=== PATIENT | male | born 1960 | race Caucasian/White ===

== ENCOUNTER 2017-09-20 14:36 | Emergency (ER) | payer MEDICARE, MEDICAID ==
[~2017-09-20] VITALS: Ht 175.3 cm; Wt 67.2 kg
[2017-09-20 15:11] LABS: BASOPHILS # (AUTO) 0.06 x10^3/uL (0-0.1); BASOPHILS % (AUTO) 1 % (0-1); EOSINOPHILS # (AUTO) 0.22 x10^3/uL (0-0.4); EOSINOPHILS % (AUTO) 3 % (1-7); LYMPHOCYTES # (AUTO) 1.67 x10^3/uL (1-3.4); LYMPHOCYTES % (AUTO) 21 % (22-44); MD NO; MEAN CORPUSCULAR HEMOGLOBIN 30.7 pg (27.5-34.5); MEAN CORPUSCULAR HGB CONC 33.4 g/dL (33.2-36.2); MEAN PLATELET VOLUME 7.7 fL (7.4-10.4); MONOCYTES # (AUTO) 0.54 x10^3/uL (0.2-0.8); MONOCYTES % (AUTO) 7 % (2-9); NEUTROPHILS # (AUTO) 5.42 x10^3/uL (1.8-6.8); NEUTROPHILS % (AUTO) 69 % (42-75); PLATELET COUNT 242 x10^3/uL (130-400); RED BLOOD COUNT 4.26 x10^6/uL (4.38-5.82); RED CELL DISTRIBUTION WIDTH 13.3 % (9.4-14.8)
[2017-09-20 15:21] LABS: ALANINE AMINOTRANSFERASE 23 U/L (12-78); ALBUMIN 3.5 g/dL (3.4-5.0); ANION GAP 8 mmol/L (5-15); CALCIUM 8.4 mg/dL (8.5-10.1); CHLORIDE 113 mmol/L (98-107); CREATININE 3.74 mg/dL (0.7-1.3)
[2017-09-20 15:23] LABS: ALKALINE PHOSPHATASE 64 U/L (45-117); BILIRUBIN,TOTAL 0.4 mg/dL (0.2-1.0); TOTAL PROTEIN 6.6 g/dL (6.4-8.2)
[2017-09-20 15:42] LABS: TROPONIN I < 0.015 ng/mL (0.000-0.045)
[2017-09-20 16:11] LABS: MICROSCOPIC INDICATED
[2017-09-20 16:19] LABS: CULTURE INDICATED? YES
[2017-09-20 17:57] VITALS: BP 152/105
== END 2017-09-20 17:59 | disposition home or self-care (01) ==
LOC: ED 17:18
DX: I13.0 Hypertensive heart and chronic kidney disease with heart failure and stage 1 through stage 4 chronic kidney disease, or unspecified chronic kidney disease (principal); N18.9 Chronic kidney disease, unspecified; I50.9 Heart failure, unspecified; Z99.2 Dependence on renal dialysis; F17.200 Nicotine dependence, unspecified, uncomplicated; R82.99 Other abnormal findings in urine
CPT/HCPCS: 36415; 80053; 81001; 83880; 84484; 85025; 87086; 99284

== ENCOUNTER 2017-11-09 16:48 | Emergency (ER) | payer MEDICAID, MEDICARE ==
[~2017-11-09] VITALS: Ht 177.8 cm; Wt 65.1 kg
[2017-11-09 20:34] LABS: ANION GAP 5 mmol/L (5-15); CALCIUM 7.8 mg/dL (8.5-10.1); CHLORIDE 116 mmol/L (98-107); CREATININE 2.96 mg/dL (0.7-1.3)
[2017-11-09 20:55] VITALS: BP 167/106
== END 2017-11-09 21:11 | disposition home or self-care (01) ==
LOC: ED 21:05
DX: T82.868A Thrombosis due to vascular prosthetic devices, implants and grafts, initial encounter (principal); N18.3 Chronic kidney disease, stage 3 (moderate); F17.200 Nicotine dependence, unspecified, uncomplicated; I13.0 Hypertensive heart and chronic kidney disease with heart failure and stage 1 through stage 4 chronic kidney disease, or unspecified chronic kidney disease; I50.9 Heart failure, unspecified
CPT/HCPCS: 36415; 80048; 99285

== ENCOUNTER 2018-02-28 16:12 | Inpatient (IN) | payer MEDICARE ==
[~2018-02-28] VITALS: Ht 175.3 cm; Wt 74.3 kg
[2018-02-28] MEDS ORDERED: ONDANSETRON ODT 4 MG PO ONE ×2 (17:00→18:30)
[2018-02-28] MEDS ORDERED: ONDA4TAB13 SL (17:05)
[2018-02-28] MEDS ORDERED: TORS10TA4 PO (17:05)
[2018-02-28] MEDS ORDERED: RANI150T4 PO (17:05)
[2018-02-28] MEDS ORDERED: AMLO10TA6 PO (17:05)
[2018-02-28] MEDS ORDERED: CARV25TA12 PO (17:05)
[2018-02-28] MEDS ORDERED: ONDANSETRON ODT 4 MG ONE (17:13)
[2018-02-28 17:18] LABS: BASOPHILS # (AUTO) 0.08 x10^3/uL (0-0.1); BASOPHILS % (AUTO) 1 % (0-1); EOSINOPHILS # (AUTO) 0.23 x10^3/uL (0-0.4); EOSINOPHILS % (AUTO) 2 % (1-7); LYMPHOCYTES # (AUTO) 1.33 x10^3/uL (1-3.4); LYMPHOCYTES % (AUTO) 11 % (22-44); MD NO; MEAN CORPUSCULAR HEMOGLOBIN 32.3 pg (27.5-34.5); MEAN CORPUSCULAR HGB CONC 34.8 g/dL (33.2-36.2); MEAN CORPUSCULAR VOLUME 92.6 fL (81-97); MEAN PLATELET VOLUME 7.2 fL (7.4-10.4); MONOCYTES # (AUTO) 0.49 x10^3/uL (0.2-0.8); MONOCYTES % (AUTO) 4 % (2-9); NEUTROPHILS # (AUTO) 9.51 x10^3/uL (1.8-6.8); NEUTROPHILS % (AUTO) 82 % (42-75); PLATELET COUNT 187 x10^3/uL (130-400); RED BLOOD COUNT 3.09 x10^6/uL (4.38-5.82); RED CELL DISTRIBUTION WIDTH 14.4 % (9.4-14.8)
[2018-02-28 17:24] LABS: ALANINE AMINOTRANSFERASE 29 U/L (12-78); ALBUMIN 2.4 g/dL (3.4-5.0); ANION GAP 10 mmol/L (5-15); CALCIUM 7.4 mg/dL (8.5-10.1); CHLORIDE 119 mmol/L (98-107); CREATININE 5.47 mg/dL (0.7-1.3)
[2018-02-28 17:28] LABS: ALKALINE PHOSPHATASE 71 U/L (45-117); BILIRUBIN,TOTAL 0.3 mg/dL (0.2-1.0); TOTAL PROTEIN 5.5 g/dL (6.4-8.2)
[2018-02-28 17:29] LABS: TROPONIN I < 0.015 ng/mL (0.000-0.045)
[2018-02-28] MEDS ORDERED: SODIUM CHLORIDE 0.9% 1,000 ML IV ONE ×2 (18:01→18:22)
[2018-02-28] MEDS ORDERED: LORazepam 2 MG/ML, 1ML ONE (18:23)
[2018-02-28] MEDS ORDERED: ONDANSETRON 2MG/ML, 2ML ONE (18:23)
[2018-02-28] MEDS ORDERED: SODIUM CHLORIDE 0.9% 1,000ML IVBOLUS ONE (18:30)
[2018-02-28] MEDS ORDERED: SODIUM CHLORIDE FLUSH 10ML SYR IVF PRN (18:30)
[2018-02-28] MEDS ORDERED: LORazepam 2 MG/ML, 1ML IVPush ONE (18:30)
[2018-02-28] MEDS ORDERED: SODIUM CHLORIDE 0.9%, 500ML IVBOLUS ONE (19:00)
[2018-02-28] MEDS ORDERED: SODIUM BICARBONATE 8.4% 75 MEQ in DEXTROSE 5% 1,000 ML IV ONE (19:00)
[2018-02-28] MEDS ORDERED: ONDANSETRON ODT 4 MG PO PRN ×2 (19:00)
[2018-02-28] MEDS ORDERED: hydrALAzine 20 MG/ML, 1ML IVPush PRN (19:00)
[2018-02-28] MEDS ORDERED: ONDANSETRON 2MG/ML, 2ML IVPush PRN (19:00)
[2018-02-28] MEDS ORDERED: ACETAMINOPHEN 325 MG TABLET PO PRN (19:00)
[2018-02-28] MEDS: CARVEDILOL 25 MG TABLET PO SCH (21:18)
[2018-02-28] MEDS: HEPARIN 5,000 UNITS/ML, 1ML SQ SCH (21:18)
[2018-02-28] MEDS: SODIUM BICARBONATE 8.4% 100 MEQ in DEXTROSE 5% 1,000 ML IV SCH (21:20)
[2018-02-28 21:25] VITALS: BP 180/98
[2018-02-28] MEDS: TEMAZEPAM 15 MG CAPSULE PO PRN (22:46)
[2018-02-28 23:31] VITALS: BP 166/88
[2018-03-01 01:25] LABS: MICROSCOPIC INDICATED
[2018-03-01 01:36] VITALS: BP 153/91
[2018-03-01] MEDS ORDERED: CALCIUM CARBONATE 500 MG TAB.CHEW PO PRN (04:30)
[2018-03-01 04:50] LABS: CALCIUM 7.6 mg/dL (8.5-10.1)
[2018-03-01 04:53] LABS: ANION GAP 11 mmol/L (5-15); CALCIUM 7.4 mg/dL (8.5-10.1); CHLORIDE 115 mmol/L (98-107); CREATININE 5.55 mg/dL (0.7-1.3)
[2018-03-01] MEDS: SODIUM BICARBONATE 8.4% 100 MEQ in DEXTROSE 5% 1,000 ML IV SCH ×3 (04:56→21:56)
[2018-03-01 05:03] LABS: BASOPHILS # (AUTO) 0.02 x10^3/uL (0-0.1); BASOPHILS % (AUTO) 0 % (0-1); EOSINOPHILS # (AUTO) 0.01 x10^3/uL (0-0.4); EOSINOPHILS % (AUTO) 0 % (1-7); LYMPHOCYTES # (AUTO) 1.39 x10^3/uL (1-3.4); LYMPHOCYTES % (AUTO) 14 % (22-44); MD NO; MEAN CORPUSCULAR HEMOGLOBIN 31.6 pg (27.5-34.5); MEAN CORPUSCULAR HGB CONC 34.3 g/dL (33.2-36.2); MEAN CORPUSCULAR VOLUME 92.2 fL (81-97); MEAN PLATELET VOLUME 7.3 fL (7.4-10.4); MONOCYTES # (AUTO) 0.61 x10^3/uL (0.2-0.8); MONOCYTES % (AUTO) 6 % (2-9); NEUTROPHILS # (AUTO) 7.71 x10^3/uL (1.8-6.8); NEUTROPHILS % (AUTO) 79 % (42-75); PLATELET COUNT 164 x10^3/uL (130-400); RED BLOOD COUNT 2.63 x10^6/uL (4.38-5.82); RED CELL DISTRIBUTION WIDTH 14.4 % (9.4-14.8)
[2018-03-01 07:56] VITALS: BP 151/90
[2018-03-01] MEDS: AMLODIPINE 10 MG TAB PO SCH (09:02)
[2018-03-01] MEDS: FAMOTIDINE 20 MG TABLET PO SCH (09:02)
[2018-03-01] MEDS: HEPARIN 5,000 UNITS/ML, 1ML SQ SCH ×2 (09:03→21:17)
[2018-03-01] MEDS: CARVEDILOL 25 MG TABLET PO SCH ×2 (09:03→21:16)
[2018-03-01 13:40] LABS: INTERNATIONAL NORMALIZED RATIO 1.04 (0.93-1.1); PROTHROMBIN TIME 10.7 Seconds (9.6-11.5)
[2018-03-01 14:00] VITALS: BP 152/84
[2018-03-01 19:53] VITALS: BP 150/87
[2018-03-01] MEDS: TEMAZEPAM 15 MG CAPSULE PO PRN (21:16)
[2018-03-02 02:00] VITALS: BP 138/80
[2018-03-02] MEDS: SODIUM BICARBONATE 8.4% 100 MEQ in DEXTROSE 5% 1,000 ML IV SCH (05:29)
[2018-03-02 05:48] LABS: CHLORIDE 108 mmol/L (98-107)
[2018-03-02 05:54] LABS: ALANINE AMINOTRANSFERASE 19 U/L (12-78); ALBUMIN 1.6 g/dL (3.4-5.0); ALKALINE PHOSPHATASE 47 U/L (45-117); ANION GAP 8 mmol/L (5-15); BILIRUBIN,TOTAL 0.2 mg/dL (0.2-1.0); CALCIUM 7.2 mg/dL (8.5-10.1); CREATININE 5.64 mg/dL (0.7-1.3); TOTAL PROTEIN 4.1 g/dL (6.4-8.2)
[2018-03-02 06:30] LABS: MEAN CORPUSCULAR HEMOGLOBIN 32.1 pg (27.5-34.5); MEAN CORPUSCULAR HGB CONC 34.3 g/dL (33.2-36.2); MEAN CORPUSCULAR VOLUME 93.7 fL (81-97); MEAN PLATELET VOLUME 7.5 fL (7.4-10.4); PLATELET COUNT 146 x10^3/uL (130-400); RED BLOOD COUNT 2.31 x10^6/uL (4.38-5.82); RED CELL DISTRIBUTION WIDTH 14.5 % (9.4-14.8)
[2018-03-02 07:00] LABS: BASOPHILS # (AUTO) 0.06 x10^3/uL (0-0.1); BASOPHILS % (AUTO) 1 % (0-1); EOSINOPHILS # (AUTO) 0.39 x10^3/uL (0-0.4); EOSINOPHILS % (AUTO) 5 % (1-7); LYMPHOCYTES # (AUTO) 1.86 x10^3/uL (1-3.4); LYMPHOCYTES % (AUTO) 23 % (22-44); MD SCAN; MONOCYTES # (AUTO) 0.75 x10^3/uL (0.2-0.8); MONOCYTES % (AUTO) 9 % (2-9); NEUTROPHILS # (AUTO) 4.96 x10^3/uL (1.8-6.8); NEUTROPHILS % (AUTO) 62 % (42-75)
[2018-03-02 07:34] VITALS: BP 104/59
[2018-03-02 08:45] VITALS: BP 145/87
[2018-03-02] MEDS: FAMOTIDINE 20 MG TABLET PO SCH (08:47)
[2018-03-02] MEDS: CARVEDILOL 25 MG TABLET PO SCH ×2 (08:47→20:42)
[2018-03-02] MEDS: AMLODIPINE 10 MG TAB PO SCH (08:47)
[2018-03-02] MEDS: HEPARIN 5,000 UNITS/ML, 1ML SQ SCH ×2 (08:48→20:42)
[2018-03-02] MEDS: ERGOCALCIFEROL 50,000 UNIT CAPSULE PO SCH (10:21)
[2018-03-02] MEDS: CALCIUM ACETATE 667 MG CAPSULE PO SCH ×2 (12:47→17:40)
[2018-03-02 13:55] VITALS: BP 149/93
[2018-03-02] MEDS ORDERED: MAGNESIUM SULFATE 1 GM in SODIUM CHLORIDE 0.9% 50 ML IV ONE (15:00)
[2018-03-02 19:02] VITALS: BP 147/88
[2018-03-02] MEDS: SODIUM BICARBONATE 650 MG TABLET PO SCH (20:42)
[2018-03-02] MEDS: TEMAZEPAM 15 MG CAPSULE PO PRN (20:46)
[2018-03-03 01:05] VITALS: BP 154/90
[2018-03-03 06:21] LABS: MEAN CORPUSCULAR HEMOGLOBIN 31.9 pg (27.5-34.5); MEAN CORPUSCULAR HGB CONC 34.7 g/dL (33.2-36.2); MEAN CORPUSCULAR VOLUME 91.8 fL (81-97); MEAN PLATELET VOLUME 7.5 fL (7.4-10.4); PLATELET COUNT 144 x10^3/uL (130-400); RED BLOOD COUNT 2.38 x10^6/uL (4.38-5.82); RED CELL DISTRIBUTION WIDTH 14.5 % (9.4-14.8)
[2018-03-03 06:31] LABS: CHLORIDE 107 mmol/L (98-107)
[2018-03-03 06:45] LABS: % IRON SATURATION 56 % (20-55); ALANINE AMINOTRANSFERASE 19 U/L (12-78); ALBUMIN 1.7 g/dL (3.4-5.0); ALKALINE PHOSPHATASE 50 U/L (45-117); ANION GAP 11 mmol/L (5-15); BASOPHILS # (AUTO) 0.05 x10^3/uL (0-0.1); BASOPHILS % (AUTO) 1 % (0-1); BILIRUBIN,TOTAL 0.3 mg/dL (0.2-1.0); CALCIUM 6.9 mg/dL (8.5-10.1); CREATININE 5.52 mg/dL (0.7-1.3); EOSINOPHILS # (AUTO) 0.41 x10^3/uL (0-0.4); EOSINOPHILS % (AUTO) 5 % (1-7); IRON LEVEL 85 mcg/dL (65-175); LYMPHOCYTES # (AUTO) 1.46 x10^3/uL (1-3.4); LYMPHOCYTES % (AUTO) 19 % (22-44); MD SCAN; MONOCYTES # (AUTO) 0.67 x10^3/uL (0.2-0.8); MONOCYTES % (AUTO) 9 % (2-9); NEUTROPHILS # (AUTO) 4.99 x10^3/uL (1.8-6.8); NEUTROPHILS % (AUTO) 66 % (42-75); TOTAL IRON BINDING CAPACITY 151 mcg/dL (250-450); TOTAL PROTEIN 4.2 g/dL (6.4-8.2)
[2018-03-03 07:31] VITALS: BP 144/88
[2018-03-03] MEDS ORDERED: VALACYCLOVIR 500MG TABLET PO SCH (09:00)
[2018-03-03] MEDS: CALCIUM ACETATE 667 MG CAPSULE PO SCH ×3 (09:22→17:43)
[2018-03-03] MEDS: HEPARIN 5,000 UNITS/ML, 1ML SQ SCH (09:22)
[2018-03-03] MEDS: SODIUM BICARBONATE 650 MG TABLET PO SCH ×2 (09:22→20:26)
[2018-03-03] MEDS: VALACYCLOVIR 500MG TABLET PO SCH (09:22)
[2018-03-03] MEDS: FAMOTIDINE 20 MG TABLET PO SCH (09:23)
[2018-03-03] MEDS: AMLODIPINE 10 MG TAB PO SCH (09:23)
[2018-03-03] MEDS: CARVEDILOL 25 MG TABLET PO SCH ×2 (09:23→20:26)
[2018-03-03] MEDS: ARANESP 60 MCG/ML **ESRD SQ SCH (11:18)
[2018-03-03 13:30] VITALS: BP 149/89
[2018-03-03 15:59] LABS: OCCULT BLOOD NEGATIVE (NEGATIVE)
[2018-03-03] MEDS: LIDODERM 5% PATCH TD SCH (17:43)
[2018-03-03] MEDS: OXYcodone IR 5MG TABLET PO PRN ×2 (17:43→22:56)
[2018-03-03 20:00] VITALS: BP 147/87
[2018-03-03] MEDS: TEMAZEPAM 15 MG CAPSULE PO PRN (22:57)
[2018-03-04 02:00] VITALS: BP 139/79
[2018-03-04 05:45] LABS: CHLORIDE 107 mmol/L (98-107)
[2018-03-04] MEDS: OXYcodone IR 5MG TABLET PO PRN ×3 (05:48→19:50)
[2018-03-04 05:50] LABS: ALANINE AMINOTRANSFERASE 21 U/L (12-78); ALBUMIN 1.7 g/dL (3.4-5.0); ALKALINE PHOSPHATASE 51 U/L (45-117); ANION GAP 11 mmol/L (5-15); BILIRUBIN,TOTAL 0.2 mg/dL (0.2-1.0); CREATININE 6.15 mg/dL (0.7-1.3); TOTAL PROTEIN 4.1 g/dL (6.4-8.2)
[2018-03-04 05:58] LABS: MEAN CORPUSCULAR HGB CONC 34.5 g/dL (33.2-36.2); MEAN CORPUSCULAR VOLUME 92.8 fL (81-97); MEAN PLATELET VOLUME 7.7 fL (7.4-10.4); PLATELET COUNT 144 x10^3/uL (130-400); RED BLOOD COUNT 2.34 x10^6/uL (4.38-5.82); RED CELL DISTRIBUTION WIDTH 14.4 % (9.4-14.8)
[2018-03-04 06:34] LABS: BASOPHILS # (AUTO) 0.07 x10^3/uL (0-0.1); BASOPHILS % (AUTO) 1 % (0-1); EOSINOPHILS % (AUTO) 5 % (1-7); LYMPHOCYTES # (AUTO) 1.59 x10^3/uL (1-3.4); LYMPHOCYTES % (AUTO) 20 % (22-44); MD SCAN; MONOCYTES # (AUTO) 0.87 x10^3/uL (0.2-0.8); MONOCYTES % (AUTO) 11 % (2-9); NEUTROPHILS # (AUTO) 5.25 x10^3/uL (1.8-6.8); NEUTROPHILS % (AUTO) 64 % (42-75)
[2018-03-04 06:51] VITALS: BP 149/85
[2018-03-04] MEDS: FAMOTIDINE 20 MG TABLET PO SCH (09:15)
[2018-03-04] MEDS: VALACYCLOVIR 500MG TABLET PO SCH (09:15)
[2018-03-04] MEDS: CARVEDILOL 25 MG TABLET PO SCH ×2 (09:15→19:50)
[2018-03-04] MEDS: CALCIUM ACETATE 667 MG CAPSULE PO SCH ×3 (09:15→16:52)
[2018-03-04] MEDS: AMLODIPINE 10 MG TAB PO SCH (09:15)
[2018-03-04] MEDS: SODIUM BICARBONATE 650 MG TABLET PO SCH ×2 (09:15→19:49)
[2018-03-04 12:05] VITALS: BP 133/83
[2018-03-04] MEDS ORDERED: LIDOCAINE-MPF 1%, 5ML ONE (12:26)
[2018-03-04] MEDS ORDERED: NALOXONE 1 MG/ML, 2ML ONE (12:42)
[2018-03-04] MEDS ORDERED: MIDAZOLAM 1 MG/ML, 5ML ONE (12:42)
[2018-03-04] MEDS ORDERED: FENTANYL PF 100 MCG/2ML ONE (12:42)
[2018-03-04] MEDS ORDERED: FLUMAZENIL 0.1 MG/1 ML, 5ML ONE (12:42)
[2018-03-04] MEDS: LIDODERM 5% PATCH TD SCH (16:53)
[2018-03-04 20:00] VITALS: BP 148/85
[2018-03-05 01:20] VITALS: BP 142/80
[2018-03-05] MEDS: OXYcodone IR 5MG TABLET PO PRN ×3 (03:08→17:33)
[2018-03-05 05:37] LABS: BASOPHILS # (AUTO) 0.05 x10^3/uL (0-0.1); BASOPHILS % (AUTO) 1 % (0-1); EOSINOPHILS # (AUTO) 0.37 x10^3/uL (0-0.4); EOSINOPHILS % (AUTO) 5 % (1-7); LYMPHOCYTES # (AUTO) 1.75 x10^3/uL (1-3.4); LYMPHOCYTES % (AUTO) 21 % (22-44); MD NO; MEAN CORPUSCULAR HEMOGLOBIN 31.8 pg (27.5-34.5); MEAN CORPUSCULAR HGB CONC 34.5 g/dL (33.2-36.2); MEAN CORPUSCULAR VOLUME 92.2 fL (81-97); MEAN PLATELET VOLUME 7.9 fL (7.4-10.4); MONOCYTES # (AUTO) 0.94 x10^3/uL (0.2-0.8); MONOCYTES % (AUTO) 12 % (2-9); NEUTROPHILS # (AUTO) 5.09 x10^3/uL (1.8-6.8); NEUTROPHILS % (AUTO) 62 % (42-75); PLATELET COUNT 139 x10^3/uL (130-400); RED CELL DISTRIBUTION WIDTH 14.8 % (9.4-14.8)
[2018-03-05 05:47] LABS: ALBUMIN 1.7 g/dL (3.4-5.0); ANION GAP 11 mmol/L (5-15); CALCIUM 7.2 mg/dL (8.5-10.1); CHLORIDE 106 mmol/L (98-107)
[2018-03-05 05:54] LABS: ALANINE AMINOTRANSFERASE 23 U/L (12-78); ALKALINE PHOSPHATASE 58 U/L (45-117); BILIRUBIN,TOTAL 0.2 mg/dL (0.2-1.0); CREATININE 6.44 mg/dL (0.7-1.3); TOTAL PROTEIN 4.4 g/dL (6.4-8.2)
[2018-03-05 08:04] VITALS: BP 135/81
[2018-03-05] MEDS: SODIUM BICARBONATE 650 MG TABLET PO SCH ×2 (08:16→21:20)
[2018-03-05] MEDS: CARVEDILOL 25 MG TABLET PO SCH ×2 (08:16→21:20)
[2018-03-05] MEDS: CALCIUM ACETATE 667 MG CAPSULE PO SCH ×3 (08:16→17:23)
[2018-03-05] MEDS: VALACYCLOVIR 500MG TABLET PO SCH (08:16)
[2018-03-05] MEDS: FAMOTIDINE 20 MG TABLET PO SCH (08:16)
[2018-03-05] MEDS: AMLODIPINE 10 MG TAB PO SCH (08:16)
[2018-03-05 14:34] VITALS: BP 130/76
[2018-03-05] MEDS: LIDODERM 5% PATCH TD SCH (17:24)
[2018-03-05 19:28] VITALS: BP 128/81
[2018-03-06] VITALS (10 sets, daily range): BP systolic 92–131; BP diastolic 58–79
[2018-03-06] MEDS: OXYcodone IR 5MG TABLET PO PRN ×2 (00:04→10:07)
[2018-03-06 05:23] LABS: MEAN CORPUSCULAR HEMOGLOBIN 31.3 pg (27.5-34.5); MEAN CORPUSCULAR HGB CONC 33.5 g/dL (33.2-36.2); MEAN CORPUSCULAR VOLUME 93.3 fL (81-97); MEAN PLATELET VOLUME 7.8 fL (7.4-10.4); PLATELET COUNT 137 x10^3/uL (130-400); RED BLOOD COUNT 2.11 x10^6/uL (4.38-5.82); RED CELL DISTRIBUTION WIDTH 14.5 % (9.4-14.8)
[2018-03-06 05:30] LABS: CHLORIDE 106 mmol/L (98-107)
[2018-03-06 05:37] LABS: ALANINE AMINOTRANSFERASE 22 U/L (12-78); ALBUMIN 1.6 g/dL (3.4-5.0); ALKALINE PHOSPHATASE 49 U/L (45-117); ANION GAP 9 mmol/L (5-15); BILIRUBIN,TOTAL 0.2 mg/dL (0.2-1.0); CALCIUM 7.4 mg/dL (8.5-10.1); CREATININE 6.71 mg/dL (0.7-1.3)
[2018-03-06 05:51] LABS: BASOPHILS # (AUTO) 0.04 x10^3/uL (0-0.1); BASOPHILS % (AUTO) 1 % (0-1); EOSINOPHILS # (AUTO) 0.36 x10^3/uL (0-0.4); EOSINOPHILS % (AUTO) 5 % (1-7); LYMPHOCYTES # (AUTO) 1.47 x10^3/uL (1-3.4); LYMPHOCYTES % (AUTO) 21 % (22-44); MD SCAN; MONOCYTES % (AUTO) 13 % (2-9); NEUTROPHILS # (AUTO) 4.12 x10^3/uL (1.8-6.8); NEUTROPHILS % (AUTO) 60 % (42-75)
[2018-03-06] MEDS: CARVEDILOL 25 MG TABLET PO SCH ×2 (08:18→20:32)
[2018-03-06] MEDS: SODIUM BICARBONATE 650 MG TABLET PO SCH ×2 (08:18→20:33)
[2018-03-06] MEDS: AMLODIPINE 10 MG TAB PO SCH (08:18)
[2018-03-06] MEDS: CALCIUM ACETATE 667 MG CAPSULE PO SCH ×3 (08:18→18:00)
[2018-03-06] MEDS: VALACYCLOVIR 500MG TABLET PO SCH (08:18)
[2018-03-06] MEDS: FAMOTIDINE 20 MG TABLET PO SCH (08:18)
[2018-03-06] MEDS: LIDODERM 5% PATCH TD SCH (18:01)
[2018-03-07 01:53] VITALS: BP 115/65
[2018-03-07 05:53] LABS: ALBUMIN 1.6 g/dL (3.4-5.0); ANION GAP 11 mmol/L (5-15); CALCIUM 7.8 mg/dL (8.5-10.1); CHLORIDE 109 mmol/L (98-107)
[2018-03-07 05:57] LABS: ALANINE AMINOTRANSFERASE 20 U/L (12-78); ALKALINE PHOSPHATASE 52 U/L (45-117); BILIRUBIN,TOTAL 0.2 mg/dL (0.2-1.0); CREATININE 7.27 mg/dL (0.7-1.3); TOTAL PROTEIN 4.2 g/dL (6.4-8.2)
[2018-03-07 06:11] LABS: BASOPHILS # (AUTO) 0.03 x10^3/uL (0-0.1); BASOPHILS % (AUTO) 0 % (0-1); EOSINOPHILS # (AUTO) 0.39 x10^3/uL (0-0.4); EOSINOPHILS % (AUTO) 5 % (1-7); LYMPHOCYTES # (AUTO) 1.26 x10^3/uL (1-3.4); LYMPHOCYTES % (AUTO) 15 % (22-44); MD NO; MEAN CORPUSCULAR HEMOGLOBIN 31.6 pg (27.5-34.5); MEAN CORPUSCULAR HGB CONC 34.5 g/dL (33.2-36.2); MEAN CORPUSCULAR VOLUME 91.8 fL (81-97); MEAN PLATELET VOLUME 7.9 fL (7.4-10.4); MONOCYTES # (AUTO) 1.01 x10^3/uL (0.2-0.8); MONOCYTES % (AUTO) 12 % (2-9); NEUTROPHILS # (AUTO) 5.61 x10^3/uL (1.8-6.8); NEUTROPHILS % (AUTO) 68 % (42-75); PLATELET COUNT 179 x10^3/uL (130-400); RED BLOOD COUNT 2.62 x10^6/uL (4.38-5.82)
[2018-03-07 06:29] LABS: INTERNATIONAL NORMALIZED RATIO 0.99 (0.93-1.1); PROTHROMBIN TIME 10.2 Seconds (9.6-11.5)
[2018-03-07 07:10] VITALS: BP 118/69
[2018-03-07] MEDS: AMLODIPINE 10 MG TAB PO SCH (09:00)
[2018-03-07] MEDS: SODIUM BICARBONATE 650 MG TABLET PO SCH ×2 (10:06→20:23)
[2018-03-07] MEDS: FAMOTIDINE 20 MG TABLET PO SCH (10:06)
[2018-03-07] MEDS: VALACYCLOVIR 500MG TABLET PO SCH (10:06)
[2018-03-07] MEDS: CALCIUM ACETATE 667 MG CAPSULE PO SCH ×3 (10:07→18:45)
[2018-03-07] MEDS: CARVEDILOL 25 MG TABLET PO SCH ×2 (10:07→20:24)
[2018-03-07 12:47] VITALS: BP 122/72
[2018-03-07] MEDS ORDERED: LIDOCAINE-MPF 1%, 5ML ONE (12:49)
[2018-03-07] MEDS ORDERED: FLUMAZENIL 0.1 MG/1 ML, 5ML ONE (13:13)
[2018-03-07] MEDS ORDERED: MIDAZOLAM 1 MG/ML, 5ML ONE (13:13)
[2018-03-07] MEDS ORDERED: FENTANYL PF 100 MCG/2ML ONE (13:13)
[2018-03-07] MEDS ORDERED: NALOXONE 1 MG/ML, 2ML ONE (13:13)
[2018-03-07] MEDS: LIDODERM 5% PATCH TD SCH (18:47)
[2018-03-07 19:29] VITALS: BP 121/77
[2018-03-07] MEDS: OXYcodone IR 5MG TABLET PO PRN (20:24)
[2018-03-08 00:41] VITALS: BP 117/70
[2018-03-08] MEDS: OXYcodone IR 5MG TABLET PO PRN ×2 (01:57→09:33)
[2018-03-08 06:42] VITALS: BP 111/73
[2018-03-08] MEDS: VALACYCLOVIR 500MG TABLET PO SCH (09:33)
[2018-03-08] MEDS: CARVEDILOL 25 MG TABLET PO SCH ×2 (09:33→21:14)
[2018-03-08] MEDS: FAMOTIDINE 20 MG TABLET PO SCH (09:33)
[2018-03-08] MEDS: CALCIUM ACETATE 667 MG CAPSULE PO SCH ×3 (09:33→17:52)
[2018-03-08] MEDS: SODIUM BICARBONATE 650 MG TABLET PO SCH ×2 (09:33→21:13)
[2018-03-08] MEDS: AMLODIPINE 10 MG TAB PO SCH (09:33)
[2018-03-08 14:00] VITALS: BP 111/75
[2018-03-08] MEDS: LIDODERM 5% PATCH TD SCH (17:52)
[2018-03-08 19:46] VITALS: BP 121/71
[2018-03-09 00:55] VITALS: BP 128/82
[2018-03-09 04:50] LABS: BASOPHILS # (AUTO) 0.05 x10^3/uL (0-0.1); BASOPHILS % (AUTO) 1 % (0-1); EOSINOPHILS # (AUTO) 0.28 x10^3/uL (0-0.4); EOSINOPHILS % (AUTO) 4 % (1-7); LYMPHOCYTES # (AUTO) 1.39 x10^3/uL (1-3.4); LYMPHOCYTES % (AUTO) 18 % (22-44); MD NO; MEAN CORPUSCULAR HEMOGLOBIN 31.3 pg (27.5-34.5); MEAN CORPUSCULAR HGB CONC 33.9 g/dL (33.2-36.2); MEAN CORPUSCULAR VOLUME 92.2 fL (81-97); MEAN PLATELET VOLUME 7.8 fL (7.4-10.4); MONOCYTES # (AUTO) 1.28 x10^3/uL (0.2-0.8); MONOCYTES % (AUTO) 16 % (2-9); NEUTROPHILS # (AUTO) 4.86 x10^3/uL (1.8-6.8); NEUTROPHILS % (AUTO) 62 % (42-75); PLATELET COUNT 147 x10^3/uL (130-400); RED BLOOD COUNT 2.64 x10^6/uL (4.38-5.82); RED CELL DISTRIBUTION WIDTH 15.7 % (9.4-14.8)
[2018-03-09 05:00] LABS: CHLORIDE 104 mmol/L (98-107)
[2018-03-09 05:09] LABS: ALANINE AMINOTRANSFERASE 17 U/L (12-78); ALBUMIN 1.4 g/dL (3.4-5.0); ALKALINE PHOSPHATASE 50 U/L (45-117); ANION GAP 9 mmol/L (5-15); BILIRUBIN,TOTAL 0.3 mg/dL (0.2-1.0); CALCIUM 7.4 mg/dL (8.5-10.1); CREATININE 4.52 mg/dL (0.7-1.3); TOTAL PROTEIN 4.1 g/dL (6.4-8.2)
[2018-03-09 08:00] VITALS: BP 122/76
[2018-03-09] MEDS: SODIUM BICARBONATE 650 MG TABLET PO SCH ×2 (09:26→20:06)
[2018-03-09] MEDS: VALACYCLOVIR 500MG TABLET PO SCH (09:26)
[2018-03-09] MEDS: CALCIUM ACETATE 667 MG CAPSULE PO SCH ×3 (09:26→20:06)
[2018-03-09] MEDS: FAMOTIDINE 20 MG TABLET PO SCH (09:27)
[2018-03-09] MEDS: ERGOCALCIFEROL 50,000 UNIT CAPSULE PO SCH (09:33)
[2018-03-09 14:00] VITALS: BP 126/77
[2018-03-09] MEDS: AMLODIPINE 10 MG TAB PO SCH (15:58)
[2018-03-09] MEDS: CARVEDILOL 25 MG TABLET PO SCH ×2 (15:58→20:07)
[2018-03-09] MEDS: HEPARIN 5,000 UNITS/ML, 1ML SQ SCH ×2 (15:59→18:00)
[2018-03-09] MEDS: LIDODERM 5% PATCH TD SCH (15:59)
[2018-03-09 19:26] VITALS: BP 125/79
[2018-03-10 00:28] VITALS: BP 122/75
[2018-03-10] MEDS: HEPARIN 5,000 UNITS/ML, 1ML SQ SCH ×3 (03:15→17:51)
[2018-03-10] MEDS: OXYcodone IR 5MG TABLET PO PRN (03:15)
[2018-03-10 05:40] LABS: BASOPHILS # (AUTO) 0.06 x10^3/uL (0-0.1); BASOPHILS % (AUTO) 1 % (0-1); EOSINOPHILS # (AUTO) 0.28 x10^3/uL (0-0.4); EOSINOPHILS % (AUTO) 4 % (1-7); LYMPHOCYTES # (AUTO) 1.28 x10^3/uL (1-3.4); LYMPHOCYTES % (AUTO) 16 % (22-44); MD NO; MEAN CORPUSCULAR HEMOGLOBIN 31.9 pg (27.5-34.5); MEAN CORPUSCULAR HGB CONC 34.3 g/dL (33.2-36.2); MEAN PLATELET VOLUME 7.9 fL (7.4-10.4); MONOCYTES # (AUTO) 1.21 x10^3/uL (0.2-0.8); MONOCYTES % (AUTO) 15 % (2-9); NEUTROPHILS % (AUTO) 65 % (42-75); PLATELET COUNT 135 x10^3/uL (130-400); RED BLOOD COUNT 2.72 x10^6/uL (4.38-5.82); RED CELL DISTRIBUTION WIDTH 15.5 % (9.4-14.8)
[2018-03-10 05:49] LABS: ALANINE AMINOTRANSFERASE 17 U/L (12-78); ALBUMIN 1.5 g/dL (3.4-5.0); ANION GAP 8 mmol/L (5-15); CALCIUM 7.4 mg/dL (8.5-10.1); CHLORIDE 104 mmol/L (98-107)
[2018-03-10 05:51] LABS: ALKALINE PHOSPHATASE 50 U/L (45-117); BILIRUBIN,TOTAL 0.3 mg/dL (0.2-1.0); CREATININE 4.19 mg/dL (0.7-1.3); TOTAL PROTEIN 4.4 g/dL (6.4-8.2)
[2018-03-10 07:38] VITALS: BP 106/64
[2018-03-10] MEDS: VALACYCLOVIR 500MG TABLET PO SCH (08:36)
[2018-03-10] MEDS: ARANESP 60 MCG/ML **ESRD SQ SCH (08:36)
[2018-03-10] MEDS: SODIUM BICARBONATE 650 MG TABLET PO SCH ×2 (08:36→20:47)
[2018-03-10] MEDS: CALCIUM ACETATE 667 MG CAPSULE PO SCH ×3 (08:37→20:53)
[2018-03-10] MEDS: AMLODIPINE 10 MG TAB PO SCH (08:38)
[2018-03-10] MEDS: FAMOTIDINE 20 MG TABLET PO SCH (08:38)
[2018-03-10] MEDS: CARVEDILOL 25 MG TABLET PO SCH ×2 (08:38→20:48)
[2018-03-10] MEDS: CEPHALEXIN 500 MG CAPSULE PO SCH (10:23)
[2018-03-10 13:30] VITALS: BP 107/61
[2018-03-10] MEDS: LIDODERM 5% PATCH TD SCH (17:50)
[2018-03-10 18:59] VITALS: BP 117/76
[2018-03-11 01:49] VITALS: BP 135/80
[2018-03-11] MEDS: HEPARIN 5,000 UNITS/ML, 1ML SQ SCH ×3 (02:03→17:04)
[2018-03-11] MEDS: TEMAZEPAM 15 MG CAPSULE PO PRN ×2 (02:04→21:57)
[2018-03-11 05:16] LABS: BASOPHILS # (AUTO) 0.04 x10^3/uL (0-0.1); BASOPHILS % (AUTO) 1 % (0-1); EOSINOPHILS # (AUTO) 0.22 x10^3/uL (0-0.4); EOSINOPHILS % (AUTO) 4 % (1-7); LYMPHOCYTES # (AUTO) 1.38 x10^3/uL (1-3.4); LYMPHOCYTES % (AUTO) 22 % (22-44); MD NO; MEAN CORPUSCULAR HEMOGLOBIN 31.8 pg (27.5-34.5); MEAN CORPUSCULAR HGB CONC 34.5 g/dL (33.2-36.2); MEAN CORPUSCULAR VOLUME 92.3 fL (81-97); MEAN PLATELET VOLUME 7.5 fL (7.4-10.4); MONOCYTES # (AUTO) 0.88 x10^3/uL (0.2-0.8); MONOCYTES % (AUTO) 14 % (2-9); NEUTROPHILS # (AUTO) 3.83 x10^3/uL (1.8-6.8); NEUTROPHILS % (AUTO) 60 % (42-75); PLATELET COUNT 131 x10^3/uL (130-400); RED BLOOD COUNT 2.76 x10^6/uL (4.38-5.82); RED CELL DISTRIBUTION WIDTH 15.3 % (9.4-14.8)
[2018-03-11 05:26] LABS: ALBUMIN 1.5 g/dL (3.4-5.0); ANION GAP 10 mmol/L (5-15); CALCIUM 7.4 mg/dL (8.5-10.1); CHLORIDE 103 mmol/L (98-107)
[2018-03-11 05:29] LABS: ALANINE AMINOTRANSFERASE 18 U/L (12-78); ALKALINE PHOSPHATASE 50 U/L (45-117); BILIRUBIN,TOTAL 0.3 mg/dL (0.2-1.0); TOTAL PROTEIN 4.4 g/dL (6.4-8.2)
[2018-03-11 07:30] VITALS: BP 135/76
[2018-03-11] MEDS: CALCIUM ACETATE 667 MG CAPSULE PO SCH ×5 (08:35→22:34)
[2018-03-11] MEDS: SODIUM BICARBONATE 650 MG TABLET PO SCH ×2 (08:35→21:57)
[2018-03-11] MEDS: FAMOTIDINE 20 MG TABLET PO SCH (08:35)
[2018-03-11] MEDS: CARVEDILOL 25 MG TABLET PO SCH ×2 (09:00→21:58)
[2018-03-11] MEDS: AMLODIPINE 10 MG TAB PO SCH (09:00)
[2018-03-11 12:34] VITALS: BP 126/70
[2018-03-11] MEDS: LIDODERM 5% PATCH TD SCH (17:04)
[2018-03-11 19:30] VITALS: BP 127/74
[2018-03-11 21:50] VITALS: BP 159/87
[2018-03-11] MEDS: CEPHALEXIN 500 MG CAPSULE PO SCH (21:57)
[2018-03-11] MEDS: OXYcodone IR 5MG TABLET PO PRN (21:58)
[2018-03-12 01:40] VITALS: BP 122/70
[2018-03-12] MEDS: HEPARIN 5,000 UNITS/ML, 1ML SQ SCH ×2 (01:53→09:22)
[2018-03-12 09:11] VITALS: BP 138/78
[2018-03-12] MEDS: CALCIUM ACETATE 667 MG CAPSULE PO SCH ×2 (09:19→13:07)
[2018-03-12] MEDS: CEPHALEXIN 500 MG CAPSULE PO SCH (09:19)
[2018-03-12] MEDS: CARVEDILOL 25 MG TABLET PO SCH (09:20)
[2018-03-12] MEDS: SODIUM BICARBONATE 650 MG TABLET PO SCH (09:20)
[2018-03-12] MEDS: FAMOTIDINE 20 MG TABLET PO SCH (09:21)
[2018-03-12] MEDS: AMLODIPINE 10 MG TAB PO SCH (09:21)
[2018-03-12] MEDS ORDERED: ERGO500017 PO (12:11)
[2018-03-12] MEDS ORDERED: CALC667C PO (12:11)
[2018-03-12] MEDS ORDERED: CEPH-376 PO (12:11)
[2018-03-12] MEDS ORDERED: SODI650T PO (12:11)
[2018-03-12 13:11] VITALS: BP 123/77
== END 2018-03-12 15:00 | disposition home or self-care (01) | DRG 673 ==
LOC: ED 17:18 → EDIP 18:22 → 4EST 19:30
PROVIDERS: ADMIT Hospitalist; ATTEND Hospitalist
PROC: 0TB13ZX Excision of Left Kidney, Percutaneous Approach, Diagnostic (ICD-10-PCS; 2018-03-04)
PROC: 30233N1 Transfusion of Nonautologous Red Blood Cells into Peripheral Vein, Percutaneous Approach (ICD-10-PCS; 2018-03-06)
PROC: 0JH63XZ Insertion of Tunneled Vascular Access Device into Chest Subcutaneous Tissue and Fascia, Percutaneous Approach (ICD-10-PCS; principal; 2018-03-07)
PROC: 02HV33Z Insertion of Infusion Device into Superior Vena Cava, Percutaneous Approach (ICD-10-PCS; 2018-03-07)
PROC: B5181ZA Fluoroscopy of Superior Vena Cava using Low Osmolar Contrast, Guidance (ICD-10-PCS; 2018-03-07)
PROC: 5A1D70Z Performance of Urinary Filtration, Intermittent, Less than 6 Hours Per Day (ICD-10-PCS; 2018-03-10)
DX: N17.0 Acute kidney failure with tubular necrosis (principal); E43 Unspecified severe protein-calorie malnutrition; E87.2 Acidosis; I13.2 Hypertensive heart and chronic kidney disease with heart failure and with stage 5 chronic kidney disease, or end stage renal disease; N18.6 End stage renal disease; B02.9 Zoster without complications; D63.1 Anemia in chronic kidney disease; B18.2 Chronic viral hepatitis C; D89.1 Cryoglobulinemia; E83.39 Other disorders of phosphorus metabolism; E83.42 Hypomagnesemia; E83.51 Hypocalcemia; F41.9 Anxiety disorder, unspecified; G89.29 Other chronic pain; I50.9 Heart failure, unspecified; N25.0 Renal osteodystrophy; Z68.24 Body mass index [BMI] 24.0-24.9, adult; I95.9 Hypotension, unspecified; B95.61 Methicillin susceptible Staphylococcus aureus infection as the cause of diseases classified elsewhere; N05.8 Unspecified nephritic syndrome with other morphologic changes; L98.8 Other specified disorders of the skin and subcutaneous tissue
CPT/HCPCS: 36415; 36558; 50200; 71046; 76937; 77001; 77012; 80048; 80053; 80074; 81001; 82272; 82306; 82310; 82436; 82570; 82595; 82728; 83540; 83550; 83735; 83880; 83970; 84100; 84133; 84156; 84300; 84484; 85025; 85610; 86480; 86706; 86850; 86900; 86923; 87040; 87070; 87077; 87186; 87205; 87521; 87798; 88300; 88329; 93005; 96374; 99156; 99157; 99285; C1894; G0378; J0882; J1644; J2250; J2405; J3010; J3475; J7070; Q0162; C1750; J1642; J2060; J2310; J7030; P9016

== ENCOUNTER 2018-05-13 06:29 | Day surgery (SDC) | payer MEDICARE ==
[~2018-05-13] VITALS: Ht 175.3 cm; Wt 65.1 kg
[~2018-05-13 06:29] MED LIST: AMLO10TA6 PO; CALC667C PO; CARV25TA12 PO; CEPH-376 PO; ERGO500017 PO; ONDA4TAB13 SL; RANI150T4 PO; SODI650T PO; TORS10TA4 PO
[2018-05-13] MEDS ORDERED: SODIUM CHLORIDE 0.9% 1,000 ML IV SCH (07:24)
[2018-05-13] MEDS ORDERED: LOSA25TA25 PO (07:28)
[2018-05-13 07:36] VITALS: BP 163/94
[2018-05-13 09:08] LABS: INTERNATIONAL NORMALIZED RATIO 0.94 (0.93-1.1)
[2018-05-13] MEDS ORDERED: THROMBIN 5,000 UNIT VIAL TP ONE (09:49)
[2018-05-13] MEDS ORDERED: BUPIVACAINE/PF 0.5% ONE (09:49)
[2018-05-13] MEDS ORDERED: HEPARIN 1,000 UNITS/ML, 10ML ONE (09:49)
[2018-05-13] MEDS ORDERED: MIDAZOLAM 1 MG/ML, 2ML ONE (09:52)
[2018-05-13] MEDS ORDERED: FENTANYL PF 100 MCG/2ML ONE (09:52)
[2018-05-13] MEDS ORDERED: PROTAMINE SULFATE 10 MG/ML, 5ML ONE (10:17)
[2018-05-13] MEDS ORDERED: ONDANSETRON 2MG/ML, 2ML ONE (10:17)
[2018-05-13] MEDS ORDERED: CEFAZOLIN 1,000 MG ONE (10:17)
[2018-05-13] MEDS ORDERED: PROPOFOL 10 MG/ML, 20ML ONE (10:17)
[2018-05-13] MEDS ORDERED: PROMETHAZINE 25 MG/ML, 1ML IV PRN (10:30)
[2018-05-13] MEDS ORDERED: hydrALAzine 20 MG/ML, 1ML IV PRN (10:30)
[2018-05-13] MEDS ORDERED: MORPHINE SULFATE 4 MG/ML, 1ML IVPush PRN (10:30)
[2018-05-13] MEDS ORDERED: ACETAMINOPHEN 325 MG TABLET PO PRN (10:30)
[2018-05-13] MEDS ORDERED: EPHEDRINE 50 MG/ML, 1ML IM PRN (10:30)
[2018-05-13] MEDS ORDERED: OXYcodone 5 MG/5 ML ORAL.SOL UDC PO PRN (10:30)
[2018-05-13] MEDS ORDERED: METOPROLOL 1 MG/ML, 5ML IV PRN (10:30)
[2018-05-13] MEDS ORDERED: FENTANYL PF 100 MCG/2ML IV PRN (10:30)
[2018-05-13] MEDS ORDERED: PROMETHAZINE 12.5 MG SUPP PR PRN (10:30)
[2018-05-13] MEDS ORDERED: MIDAZOLAM 1 MG/ML, 2ML IV PRN (10:30)
[2018-05-13] MEDS ORDERED: DIPHENHYDRAMINE 50 MG/ML, 1ML IVPush PRN (10:30)
[2018-05-13] MEDS ORDERED: EPHEDRINE 50 MG/ML, 1ML IVPush PRN (10:30)
[2018-05-13] MEDS ORDERED: ONDANSETRON 2MG/ML, 2ML IV PRN (10:30)
[2018-05-13] MEDS ORDERED: ONDANSETRON ODT 8 MG PO PRN (10:30)
[2018-05-13] MEDS ORDERED: PROMETHAZINE 25 MG SUPP PR PRN (10:30)
[2018-05-13] MEDS ORDERED: BUPIVACAINE/PF 0.5% INFIL ONE (10:38)
[2018-05-13] MEDS ORDERED: HEPARIN 1,000 UNITS/ML, 10ML IV ONE (10:39)
[2018-05-13] MEDS ORDERED: OXYcodone 5 MG/5 ML ORAL.SOL UDC ONE (11:44)
== END 2018-05-13 13:57 | disposition home or self-care (01) ==
LOC: OUT 06:29
PROVIDERS: ATTEND Surgery
DX: N18.6 End stage renal disease (principal); I50.9 Heart failure, unspecified; F44.9 Dissociative and conversion disorder, unspecified; Z99.2 Dependence on renal dialysis
CPT/HCPCS: 36415; 36821; 80047; 85610; 85730; J0690; J1644; J2250; J2405; J2704; J2720; J3010; J3490; J7030

== ENCOUNTER 2018-09-05 10:36 | Emergency (ER) | payer MEDICARE ==
[~2018-09-05] VITALS: Ht 170.2 cm; Wt 61.0 kg
[~2018-09-05 10:36] MED LIST changes: -AMLO10TA6 PO; +AMLO10TA8 PO; +LOSA25TA25 PO
--- NOTE | 2018-09-05 10:58 | NUR ---
PT AMBULATORY TO ROOM T1 W/ C/O N/V/D X 2 DAYS. PT STATES ABD SORENESS STARTED AFTER PT WAS HAVING EMESIS. PT HAS HX CKD ON DIALYSIS AND CHF. ERP DR. SWEET AT BEDSIDE.
[2018-09-05] MEDS ORDERED: SODIUM CHLORIDE FLUSH 10ML SYR IVF ONE (11:00)
[2018-09-05] MEDS ORDERED: DIPHENHYDRAMINE 50 MG/ML, 1ML IVPush ONE (11:00)
[2018-09-05] MEDS ORDERED: METOCLOPRAMIDE 5 MG/ML, 2ML IVPush ONE (11:00)
[2018-09-05] MEDS ORDERED: SODIUM CHLORIDE 0.9% 1,000ML IVBOLUS ONE (11:00)
[2018-09-05] MEDS ORDERED: FAMOTIDINE 20 MG TABLET ONE (11:17)
[2018-09-05] MEDS ORDERED: MAALOX/HYOSCYAMINE/LIDOCAINE 45 ML BTL ONE (11:17)
[2018-09-05] MEDS ORDERED: METOCLOPRAMIDE 5 MG/ML, 2ML ONE (11:17)
[2018-09-05] MEDS ORDERED: DIPHENHYDRAMINE 50 MG/ML, 1ML ONE (11:17)
[2018-09-05 11:29] LABS: BASOPHILS # (AUTO) 0.01 x10^3/uL (0-0.1); BASOPHILS % (AUTO) 0 % (0-1); EOSINOPHILS % (AUTO) 0 % (1-7); LYMPHOCYTES # (AUTO) 0.97 x10^3/uL (1-3.4); LYMPHOCYTES % (AUTO) 10 % (22-44); MD NO; MEAN CORPUSCULAR HEMOGLOBIN 32.8 pg (27.5-34.5); MEAN CORPUSCULAR HGB CONC 33.5 g/dL (33.2-36.2); MEAN CORPUSCULAR VOLUME 97.7 fL (81-97); MEAN PLATELET VOLUME 7.6 fL (7.4-10.4); MONOCYTES # (AUTO) 0.48 x10^3/uL (0.2-0.8); MONOCYTES % (AUTO) 5 % (2-9); NEUTROPHILS # (AUTO) 8.74 x10^3/uL (1.8-6.8); NEUTROPHILS % (AUTO) 86 % (42-75); PLATELET COUNT 247 x10^3/uL (130-400); RED BLOOD COUNT 3.96 x10^6/uL (4.38-5.82); RED CELL DISTRIBUTION WIDTH 15.4 % (9.4-14.8)
[2018-09-05] MEDS ORDERED: MAALOX/HYOSCYAMINE/LIDOCAINE 45 ML BTL PO ONE (11:30)
[2018-09-05] MEDS ORDERED: FAMOTIDINE 20 MG TABLET PO ONE (11:30)
[2018-09-05 11:41] LABS: ALBUMIN 4.2 g/dL (3.4-5.0); ANION GAP 12 mmol/L (5-15); CALCIUM 10.5 mg/dL (8.5-10.1); CHLORIDE 94 mmol/L (98-107)
[2018-09-05 11:44] LABS: ALANINE AMINOTRANSFERASE 25 U/L (12-78); ALKALINE PHOSPHATASE 70 U/L (45-117); BILIRUBIN,TOTAL 0.6 mg/dL (0.2-1.0); CREATININE 7.91 mg/dL (0.7-1.3); TOTAL PROTEIN 8.1 g/dL (6.4-8.2)
[2018-09-05] MEDS ORDERED: VANCOMYCIN 1,200 MG in SODIUM CHLORIDE 0.9% 250 ML IV SCH (12:30)
[2018-09-05] MEDS ORDERED: VANCOMYCIN PER PHARMACY MC PRN (12:30)
[2018-09-05] MEDS ORDERED: PHARMACOKINETIC CONSULTATION MC ONE (12:30)
[2018-09-05] MEDS ORDERED: VANCOMYCIN 1,200 MG in SODIUM CHLORIDE 0.9% 250 ML IV ONE (12:30)
--- NOTE | 2018-09-05 12:47 | NUR ---
PT RESTING ON GURNEY. NADN. HELM.
--- NOTE | 2018-09-05 13:15 | NUR ---
DRESSING CARE PERFORMED. PT RESTING ON ARTEMIO. VSS.
--- NOTE | 2018-09-05 13:51 | NUR ---
PT RESTING ON GURNEY. NADN. HELM.
--- NOTE | 2018-09-05 14:29 | NUR ---
PT.'S ABX ARE COMPLETE. PT. WAS GIVEN DISCHARGE INSTRUCTIONS WITH UNDERSTANDING VERBALIZED ALONG WITH WILLINGNESS TO COMPLY. PT.'S IV WAS DCD', CATH TIP INTACT. PRESSURE HELD WITH HEMOSTASIS ACHIEVED. PT. WAS AMBULATORY TO THE DISCHARGE DESK. VSS.
[2018-09-05 14:31] VITALS: BP 150/96
== END 2018-09-05 14:38 | disposition home or self-care (01) ==
LOC: ED 13:31
DX: T81.31XA Disruption of external operation (surgical) wound, not elsewhere classified, initial encounter (principal); L76.82 Other postprocedural complications of skin and subcutaneous tissue; I10 Essential (primary) hypertension; K21.9 Gastro-esophageal reflux disease without esophagitis; Z86.19 Personal history of other infectious and parasitic diseases; F17.200 Nicotine dependence, unspecified, uncomplicated
CPT/HCPCS: 36415; 80053; 83605; 85025; 87040; 93005; 96361; 96365; 96366; 96375; 99284; J1200; J2765; J3370; J7030; J7050

== ENCOUNTER 2019-03-17 13:41 | Outpatient (CLI) | payer MEDICARE | END 2019-03-17 23:59 | disposition home or self-care (01) | LOC: CFH 13:41 | PROVIDERS: ATTEND Nurse Practitioner | DX: Z12.2 Encounter for screening for malignant neoplasm of respiratory organs (principal); I71.4 Abdominal aortic aneurysm, without rupture; I25.10 Atherosclerotic heart disease of native coronary artery without angina pectoris; F17.210 Nicotine dependence, cigarettes, uncomplicated | CPT/HCPCS: 76706; G0297 ==

== ENCOUNTER 2019-09-29 11:23 | Emergency (ER) | payer MEDICARE ==
[~2019-09-29] VITALS: Ht 175.3 cm; Wt 59.0 kg
[2019-09-29 11:27] VITALS: BP 161/88
[2019-09-29] MEDS ORDERED: SODIUM CHLORIDE 0.9% 1,000 ML IV ONE (12:00)
[2019-09-29] MEDS ORDERED: SODIUM CHLORIDE FLUSH 10ML SYR IVF ONE (12:00)
--- NOTE | 2019-09-29 12:28 | NUR ---
PT PRESENTS TO ED WITH C/O N/V WITH GENERALIZED ABD PAIN SINCE DIALYSIS SUNDAY. PATIENT WITH HX OF GERD. MILD AMOUNT OF DISTRESS AND DISCOMFORT NOTED. IV STARTED.
[2019-09-29 12:43] LABS: BASOPHILS # (AUTO) 0.04 x10^3/uL (0-0.1); BASOPHILS % (AUTO) 0 % (0-1); EOSINOPHILS # (AUTO) 0.03 x10^3/uL (0-0.4); EOSINOPHILS % (AUTO) 0 % (1-7); LYMPHOCYTES # (AUTO) 1.97 x10^3/uL (1-3.4); LYMPHOCYTES % (AUTO) 14 % (22-44); MD NO; MEAN CORPUSCULAR HEMOGLOBIN 33.8 pg (27.5-34.5); MEAN CORPUSCULAR HGB CONC 34.5 g/dL (33.2-36.2); MEAN CORPUSCULAR VOLUME 97.9 fL (81-97); MEAN PLATELET VOLUME 7.9 fL (7.4-10.4); MONOCYTES # (AUTO) 0.97 x10^3/uL (0.2-0.8); MONOCYTES % (AUTO) 7 % (2-9); NEUTROPHILS # (AUTO) 11.08 x10^3/uL (1.8-6.8); NEUTROPHILS % (AUTO) 79 % (42-75); PLATELET COUNT 255 x10^3/uL (130-400); RED BLOOD COUNT 3.98 x10^6/uL (4.38-5.82); RED CELL DISTRIBUTION WIDTH 12.5 % (9.4-14.8)
[2019-09-29 12:54] LABS: ALBUMIN 3.8 g/dL (3.4-5.0); ANION GAP 15 mmol/L (5-15); CHLORIDE 92 mmol/L (98-107); CREATININE 7.32 mg/dL (0.7-1.3)
[2019-09-29 13:04] LABS: ALANINE AMINOTRANSFERASE 26 U/L (12-78); ALKALINE PHOSPHATASE 80 U/L (45-117); BILIRUBIN,TOTAL 1.3 mg/dL (0.2-1.0); TOTAL PROTEIN 7.5 g/dL (6.4-8.2)
--- NOTE | 2019-09-29 13:43 | NUR ---
BREAK NOTE FOR RN: PT SITTING RECLINED IN BED. RESPIRATIONS EVEN AND UNLABORED ON RA. IVF INFUSING PER EMAR. PT REPORTS RELIEF FROM NAUSEA. URINAL EMPTIED AND REPLACED TO PT'S BEDSIDE. SIDE RAIL UP, CALL LIGHT IN REACH.
[2019-09-29] MEDS ORDERED: MAALOX/HYOSCYAMINE/LIDOCAINE 45 ML BTL ONE (13:57)
--- NOTE | 2019-09-29 13:58 | NUR ---
TASK RN NOTE: ERMD UPDATED ON PT. AWAITING FURTHER ORDERS. PT C/O CHRONIC "HEART BURN"
[2019-09-29] MEDS ORDERED: MAALOX/HYOSCYAMINE/LIDOCAINE 45 ML BTL PO ONE (14:00)
--- NOTE | 2019-09-29 14:03 | NUR ---
TASK RN NOTE: PT ABLE TO DRINK GI COCKTAIL WITHOUT TROUBLE. REPORTS THAT PO WATER BURNED. NAD NOTED AT THIS TIME. PT INSTRUCTED TO ALLOW GI COCKTAIL TIME BEFORE TRYING PO WATER AGAIN. PT VERBALIZED UNDERSTANDING.
[2019-09-29] MEDS ORDERED: ONDANSETRON 2MG/ML, 2ML ONE (14:29)
[2019-09-29] MEDS ORDERED: ONDANSETRON 2MG/ML, 2ML IVPush ONE (14:30)
[2019-09-29] MEDS ORDERED: PANTOPRAZOLE 40 MG IV ONE (14:45)
--- NOTE | 2019-09-29 14:52 | NUR ---
RE-EVAL BY
[2019-09-30] MEDS ORDERED: PANTOPRAZOLE 40 MG IV IVPush SCH (09:00)
== END 2019-09-29 15:24 | disposition home or self-care (01) ==
LOC: ED 13:51
DX: K21.9 Gastro-esophageal reflux disease without esophagitis (principal); R11.2 Nausea with vomiting, unspecified; E86.0 Dehydration; R00.0 Tachycardia, unspecified; I11.0 Hypertensive heart disease with heart failure; I50.9 Heart failure, unspecified
CPT/HCPCS: 36415; 80053; 83690; 85025; 93005; 96361; 96374; 96375; 99284; C9113; J2405; J7030